=== PATIENT | male | born 2000 | race Caucasian/White ===

== ENCOUNTER 2023-04-01 11:44 | Emergency (ER) | payer OTHER ==
[~2023-04-01] VITALS: Ht 185.4 cm; Wt 113.4 kg
[2023-04-01 11:48] VITALS: BP 152/79
[2023-04-01] MEDS ORDERED: AMOCLA875 PO (13:34)
== END 2023-04-01 13:52 | disposition home or self-care (01) ==
LOC: ER 11:44
DX: K02.9 Dental caries, unspecified (principal)
CPT/HCPCS: 64400; 99282-25